=== PATIENT | female | born 1965 | race Caucasian/White ===

== ENCOUNTER 2023-03-14 17:45 | Emergency (ER) | payer OTHER, SELFPAY ==
[2023-03-14 17:55] VITALS: BP 143/71; PULSE 74; RESP 16; TEMP 37.2; O2SAT 99
--- NOTE | 2023-03-14 18:00 | ED.EXTPRO ---
HPI - Extremity Problem General Chief complaint: Extremity Injury, Lower Stated complaint: Left Foot Pain Time Seen by Provider: 03/14/23 18:42 Source: patient and RN notes reviewed Mode of arrival: ambulatory Limitations: no limitations History of Present Illness HPI Narrative: 57-year-old female presents with concern for acute left foot pain. Reports she started today suddenly without injury or trauma. Reports she recently started riding her horse again after taking some time off. She reports she he tried several things today including ice, Maninder wrap, crutches. She reports she had gout in the left 5th digit in November Complaint: extremity pain Related Data Home Medications Medication Instructions Recorded Confirmed quetiapine 50 mg tablet 50 mg PO HS 03/14/23 03/14/23 venlafaxine 150 mg 150 mg PO DAILY 03/14/23 03/14/23 capsule,extended release 24 hr Allergies Allergy/AdvReac Type Severity Reaction Status Date / Time No Known Allergies Allergy Unknown Verified 03/14/23 18:11 Review of Systems Review of Systems: CONSTITUTIONAL: Denies malaise, chills, sweats, or fever. SKIN: Denies rash or itching, open skin, laceration, abrasion, redness, warmth MUSCULOSKELETAL: Reports left foot pain NEUROLOGIC: Denies numbness, weakness All systems reviewed & are unremarkable except as noted in HPI and below PMFSH Comments At time of signature, agree with nursing past medical, surgical, social and family history. There is no relevant family history pertinent to the presenting complaint Exam Narrative: GENERAL: Well-appearing, well-nourished, and in no acute distress. HEAD: Normocephalic, atraumatic. EYES: PERRLA, conjunctivae clear NECK: Supple. CHEST: Speaks in full sentences. No respiratory distress. HEART: Regular rate and rhythm. Normal and equal peripheral pulses. EXTREMITIES: Left ankle, foot, digits have normal strength and sensation, normal range of motion. No edema or ecchymosis. Very mild erythema without induration. Lateral foot tenderness. 5/5 strength with ankle in digit flexion and extension. Normal sensation with sensitivity to light touch and pain. No point tenderness. No open wounds, no skin tenting, no devitalized tissue or atrophy, no trophic changes, no obvious deformity, alignment normal, nearby joints and structures intact. Distal pulses palpable and equal bilaterally, skin warm, dry, pink. Capillary refill less than 3 seconds. SKIN: Warm, dry, no rash. NEURO: Alert and oriented x3. PSYCH: Normal mood and affect Course Course Emergency Course: Patient is aware of diagnosis, understands and agrees to treatment plan. Anticipatory guidance given. Patient agrees to follow-up as directed and is aware of reasons to seek care at the emergency department. Portions of this record may have been created with voice recognition software Level of Care: Express Care Visit Vital Signs Vital signs: Vital Signs Temperature 98.9 F 03/14/23 17:55 Pulse Rate 74 03/14/23 17:55 Respiratory Rate 16 03/14/23 17:55 Blood Pressure 143/71 H 03/14/23 17:55 Pulse Oximetry 99 03/14/23 17:55 Oxygen Delivery Room Air 03/14/23 17:55 Temperature 98.9 F 03/14/23 17:55 Pulse Rate 74 03/14/23 17:55 Respiratory Rate 16 03/14/23 17:55 Blood Pressure 143/71 H 03/14/23 17:55 Pulse Oximetry 99 03/14/23 17:55 Oxygen Delivery Room Air 03/14/23 17:55 Reviewed. MDM - Extremity (Nontraumatic) MDM Narrative Medical decision making narrative: Patients pain is consistent with musculoskeletal etiology. No signs of neurological or vascular compromise on exam. Compartments and tissues are soft without signs of compartment syndrome. Pain is felt appropriate for further evaluation on an outpatient basis. Differential Diagnosis Differential diagnosis: Likely gout, cellulitis, superficial thrombophlebitis, lower extremity edema and other (Tendinitis, sprain) Critical Care Time Cr
== END 2023-03-14 18:58 | disposition home or self-care (01) ==
PROVIDERS: Emergency Provider Nurse Practitioner; PCP Internal Medicine
DX: M79.672 Pain in left foot (principal); M10.9 Gout, unspecified; F41.9 Anxiety disorder, unspecified; F32.A Depression, unspecified
CPT/HCPCS: 99213; G0463